=== PATIENT | male | born 1995 | race Two or more races ===

== ENCOUNTER → 2019-10-19 | Outpatient (CLI) | payer BC ==
[2019-10-19 14:44] LABS: Potassium 4.1 mmol/L (3.5-5.1)
[2019-10-19 14:51] LABS: BUN/Creatinine Ratio 12.4; Calcium 9.2 mg/dL (8.5-10.1)
== END | disposition home or self-care (01) ==
LOC: LAB 13:56
PROVIDERS: ATTEND Internal Medicine
DX: I10 Essential (primary) hypertension (principal); R06.00 Dyspnea, unspecified; R07.9 Chest pain, unspecified
CPT/HCPCS: 36415; 80048; 80061; 83880